=== PATIENT | male | born 1955 | race African-American/Black ===

== ENCOUNTER 2016-09-03 09:02 | Emergency (ER) | payer MEDICAID ==
[~2016-09-03] VITALS: Ht 177.8 cm; Wt 64.0 kg
[2016-09-03] MEDS ORDERED: KETOROLAC 60MG/2ML VIAL IM ONE (10:00)
[2016-09-03] MEDS ORDERED: LIDOCAINE HCL 1% 20ML VIAL (Pyxis) INJ MC ONE (10:00)
[2016-09-03] MEDS ORDERED: BACITRACIN ZINC OINT UDPKT TOP ONE (10:00)
[2016-09-03 10:10] VITALS: BP 178/94
== END 2016-09-03 11:25 | disposition home or self-care (01) ==
LOC: ER 10:04
DX: L02.212 Cutaneous abscess of back [any part, except buttock and flank] (principal); I10 Essential (primary) hypertension; F17.210 Nicotine dependence, cigarettes, uncomplicated
CPT/HCPCS: 10060; 96372; 99283; J1885; J3490; X7700; Z7610

== ENCOUNTER 2017-10-26 04:22 | Emergency (ER) | payer MEDICAID ==
[~2017-10-26] VITALS: Ht 172.7 cm; Wt 62.0 kg
[2017-10-26 08:23] LABS: BASOPHILS % 0.9 % (0.0-2.0); EOSINOPHILS % 4.3 % (0.0-5.0); HEMATOCRIT. 25.6 % (42.0-52.0); HEMOGLOBIN. 8.7 g/dL (14.0-18.0); MEAN CORPUSCULAR HEMOGLOBIN 32.3 pg (28.0-32.0); MEAN CORPUSCULAR VOLUME 95.2 fL (80.0-94.0); MEAN PLATELET VOLUME 7.8 fl (7.4-10.4); MONOCYTES % 8.6 % (2.0-8.0); NEUTROPHILS % 63.2 % (40.0-76.0); PLATELET 117 x1000/uL (130-400); RED BLOOD CELL COUNT 2.69 mill/uL (4.7-6.1); RED CELL DISTRIBUTION WIDTH 13.6 % (11.6-14.6)
[2017-10-26 08:24] LABS: CHLORIDE 102 mEq/L (98-107)
[2017-10-26 08:28] LABS: ETHANOL BLOOD < 10 mg/dL
[2017-10-26 14:25] VITALS: BP 162/69
== END 2017-10-26 14:29 | disposition home or self-care (01) ==
LOC: ER 04:22
DX: S40.862A Insect bite (nonvenomous) of left upper arm, initial encounter (principal); S40.861A Insect bite (nonvenomous) of right upper arm, initial encounter; S27.898A Other injury of other specified intrathoracic organs, initial encounter; S22.42XA Multiple fractures of ribs, left side, initial encounter for closed fracture; I10 Essential (primary) hypertension; D64.9 Anemia, unspecified; F17.200 Nicotine dependence, unspecified, uncomplicated; W57.XXXA Bitten or stung by nonvenomous insect and other nonvenomous arthropods, initial encounter; V89.2XXA Person injured in unspecified motor-vehicle accident, traffic, initial encounter; Y93.9 Activity, unspecified; Y92.9 Unspecified place or not applicable
CPT/HCPCS: 36415; 71101; 80053; 85025; 93005; 99285; G0482; Z7610

== ENCOUNTER 2020-02-26 20:20 | Inpatient (IN) | payer MEDICAID, OTHER ==
[~2020-02-26] VITALS: Ht 172.7 cm; Wt 54.4 kg
[2020-02-26] MEDS ORDERED: AZITHROMYCIN 500 MG in DEXT 5% WATER 250 ML IV ONE (21:00)
[2020-02-26] MEDS ORDERED: SODIUM CHLORIDE 0.9% 1000ML BAG (SEPSIS BOLUS) IV ONE (21:00)
[2020-02-26] MEDS ORDERED: PIPERACILLIN/TAZ 3.375G PREMIX 50 ML IV ONE (21:00)
[2020-02-26 21:12] LABS: BASOPHILS % 0.8 % (0.0-2.0); EOSINOPHILS % 1.2 % (0.0-5.0); LYMPHOCYTES % 9.2 % (20.0-50.0); MEAN CORPUSCULAR HEMOGLOBIN 26.2 pg (28.0-32.0); MEAN CORPUSCULAR VOLUME 84.9 fL (80.0-94.0); MEAN PLATELET VOLUME 7.5 fl (7.4-10.4); MONOCYTES % 4.3 % (2.0-8.0); NEUTROPHILS % 84.5 % (40.0-76.0); PLATELET 534 x1000/uL (130-400); RED BLOOD CELL COUNT 2.66 mill/uL (4.7-6.1); RED CELL DISTRIBUTION WIDTH 15.5 % (11.6-14.6)
[2020-02-26 21:18] LABS: CHLORIDE 105 mEq/L (98-107)
[2020-02-26 21:20] LABS: INR 1.2; PROTHROMBIN TIME 12.7 sec (9.6-11.0)
[2020-02-26 21:30] LABS: HEMATOCRIT. 22.6 % (42.0-52.0)
[2020-02-26 21:58] LABS: CLARITY URINE CLEAR (CLEAR); COLOR URINE DARK YELLOW (YELLOW); KETONES URINE NEGATIVE (NEGATIVE); LEUKOCYTE ESTERASE URINE TRACE (NEGATIVE); NITRITE URINE POSITIVE (NEGATIVE); OCCULT BLOOD URINE TRACE (NEGATIVE); PROTEIN URINE 1+ (NEGATIVE); SPECIFIC GRAVITY URINE 1.028 (1.005-1.030)
[2020-02-27 03:35] VITALS: BP 137/75
[2020-02-27 04:30] VITALS: BP 137/75
[2020-02-27] MEDS ORDERED: ACET650S27 RC (05:27)
[2020-02-27] MEDS ORDERED: HYOS0.124 SL (05:27)
[2020-02-27] MEDS ORDERED: KEPPSOL MT (05:27)
[2020-02-27] MEDS ORDERED: TOPUD MT (05:27)
[2020-02-27] MEDS ORDERED: BISA10SU62 RC (05:27)
[2020-02-27] MEDS ORDERED: HYDR-4133 MT (05:27)
[2020-02-27] MEDS ORDERED: ONDA4TAB11 PO (05:27)
[2020-02-27] MEDS ORDERED: MORP10DI10 SL (05:27)
[2020-02-27] MEDS ORDERED: AMLO10TA80 MT (05:27)
[2020-02-27 08:00] VITALS: BP 137/73
[2020-02-27] MEDS ORDERED: PIPERACILLIN/TAZ 3.375G PREMIX 50 ML IV SCH (08:00)
[2020-02-27] MEDS ORDERED: IPRATROPIUM/ALBUTEROL 0.5-3(2.5)MG/3ML NEB HHN PRN (08:00)
[2020-02-27] MEDS ORDERED: ONDANSETRON HCL 4MG/2ML INJ IV PRN (08:00)
[2020-02-27] MEDS ORDERED: DIPHENHYDRAMINE 50MG/ML VIAL IV PRN (08:00)
[2020-02-27] MEDS ORDERED: CLONIDINE 0.1MG TABLET PO PRN (08:00)
[2020-02-27] MEDS ORDERED: ACETAMINOPHEN 325MG TABLET PO PRN (08:00)
[2020-02-27] MEDS: PIPERACILLIN/TAZOBACTAM 3.375 G in DEXT 5% WATER 100 ML IV SCH ×3 (09:59→21:07)
[2020-02-27 12:00] VITALS: BP 123/74
[2020-02-27 16:00] VITALS: BP 116/70
[2020-02-27 16:40] LABS: BASOPHILS % 0.2 % (0.0-2.0); EOSINOPHILS % 0.7 % (0.0-5.0); HEMATOCRIT. 24.3 % (42.0-52.0); HEMOGLOBIN. 7.9 g/dL (14.0-18.0); LYMPHOCYTES % 7.8 % (20.0-50.0); MEAN CORPUSCULAR HEMOGLOBIN 27.2 pg (28.0-32.0); MEAN CORPUSCULAR VOLUME 84.2 fL (80.0-94.0); MEAN PLATELET VOLUME 7.1 fl (7.4-10.4); MONOCYTES % 4.4 % (2.0-8.0); NEUTROPHILS % 86.9 % (40.0-76.0); PLATELET 490 x1000/uL (130-400); RED BLOOD CELL COUNT 2.88 mill/uL (4.7-6.1); RED CELL DISTRIBUTION WIDTH 15.5 % (11.6-14.6)
[2020-02-27 16:56] LABS: TOTAL IRON BINDING CAPACITY 167 ug/dL (250-450)
[2020-02-27 17:18] LABS: FOLIC ACID (FOLATE) SERUM 14.9 ng/mL (>5.38)
[2020-02-27] MEDS: SODIUM HYPOCHLORITE 0.125% 473ML SOLUTION TOP SCH (18:00)
[2020-02-27 20:38] VITALS: BP 115/64
[2020-02-27] MEDS: INSULIN LISPRO 100 UNITS/ML SUBCUT SCH (21:00)
[2020-02-27] MEDS: BLOOD SUGAR DIAGNOSTIC STRIP TEST SCH (21:07)
[2020-02-28] VITALS: BP 123/66
[2020-02-28 04:00] VITALS: BP 121/68
[2020-02-28] MEDS: PIPERACILLIN/TAZOBACTAM 3.375 G in DEXT 5% WATER 100 ML IV SCH (05:58)
[2020-02-28] MEDS: DEXTROSE 50% WATER 50ML SYRINGE IV PRN (06:07)
[2020-02-28] MEDS: BLOOD SUGAR DIAGNOSTIC STRIP TEST SCH ×4 (06:20→21:15)
[2020-02-28 06:45] LABS: BASOPHILS % 0.6 % (0.0-2.0); EOSINOPHILS % 0.3 % (0.0-5.0); HEMATOCRIT. 25.6 % (42.0-52.0); HEMOGLOBIN. 8.4 g/dL (14.0-18.0); LYMPHOCYTES % 8.6 % (20.0-50.0); MEAN CORPUSCULAR HEMOGLOBIN 27.5 pg (28.0-32.0); MEAN CORPUSCULAR VOLUME 83.9 fL (80.0-94.0); MONOCYTES % 4.2 % (2.0-8.0); NEUTROPHILS % 86.3 % (40.0-76.0); PLATELET 539 x1000/uL (130-400); RED BLOOD CELL COUNT 3.05 mill/uL (4.7-6.1); RED CELL DISTRIBUTION WIDTH 15.4 % (11.6-14.6)
[2020-02-28 06:55] LABS: CHLORIDE 105 mEq/L (98-107)
[2020-02-28 07:03] LABS: LDL CHOLESTEROL 31 mg/dL (5-100)
[2020-02-28 07:05] LABS: HDL CHOLESTEROL 28 mg/dL (40-59)
[2020-02-28] MEDS: SODIUM HYPOCHLORITE 0.125% 473ML SOLUTION TOP SCH (07:29)
[2020-02-28] MEDS: INSULIN LISPRO 100 UNITS/ML SUBCUT SCH ×4 (07:29→21:00)
[2020-02-28 08:00] VITALS: BP 99/56
[2020-02-28 12:00] VITALS: BP 104/64
[2020-02-28] MEDS: FERROUS SULFATE 325MG TABLET PO SCH ×2 (14:13→19:34)
[2020-02-28] MEDS: CEFTRIAXONE 1,000 MG in DEXTROSE 5% WATER 50 ML IV SCH (14:13)
[2020-02-28 16:00] VITALS: BP 105/72
[2020-02-28] MEDS ORDERED: POTASSIUM CHLORIDE 20MEQ TABLET SR PO SCH (19:50)
[2020-02-28 20:00] VITALS: BP 116/71
[2020-02-29] MEDS ORDERED: POTASSIUM CHLORIDE 20MEQ TABLET SR PO SCH
[2020-02-29 00:41] VITALS: BP 121/73
[2020-02-29 04:00] VITALS: BP 125/80
[2020-02-29 07:16] LABS: CHLORIDE 104 mEq/L (98-107)
[2020-02-29 07:18] LABS: BASOPHILS % 0.3 % (0.0-2.0); EOSINOPHILS % 1.2 % (0.0-5.0); HEMATOCRIT. 24.7 % (42.0-52.0); HEMOGLOBIN. 7.8 g/dL (14.0-18.0); LYMPHOCYTES % 11.9 % (20.0-50.0); MEAN CORPUSCULAR HEMOGLOBIN 26.7 pg (28.0-32.0); MEAN CORPUSCULAR VOLUME 84.3 fL (80.0-94.0); MEAN PLATELET VOLUME 7.2 fl (7.4-10.4); MONOCYTES % 4.3 % (2.0-8.0); NEUTROPHILS % 82.3 % (40.0-76.0); PLATELET 565 x1000/uL (130-400); RED BLOOD CELL COUNT 2.92 mill/uL (4.7-6.1); RED CELL DISTRIBUTION WIDTH 15.4 % (11.6-14.6)
[2020-02-29] MEDS: INSULIN LISPRO 100 UNITS/ML SUBCUT SCH ×4 (07:28→21:00)
[2020-02-29] MEDS: BLOOD SUGAR DIAGNOSTIC STRIP TEST SCH ×4 (07:28→21:32)
[2020-02-29] MEDS: CEFTRIAXONE 1,000 MG in DEXTROSE 5% WATER 50 ML IV SCH (08:25)
[2020-02-29] MEDS: FERROUS SULFATE 325MG TABLET PO SCH ×3 (08:25→18:11)
[2020-02-29 08:26] VITALS: BP 107/67
[2020-02-29] MEDS: SODIUM HYPOCHLORITE 0.125% 473ML SOLUTION TOP SCH (08:26)
[2020-02-29 11:47] VITALS: BP 119/79
[2020-02-29] MEDS: DEXTROSE 50% WATER 50ML SYRINGE IV PRN (12:50)
[2020-02-29] MEDS ORDERED: POTASSIUM CHLORIDE 20MEQ/PACKET PO NR (15:00)
[2020-02-29 15:52] VITALS: BP 105/69
[2020-02-29] MEDS ORDERED: LIDOCAINE HCL/EPINEPHRINE 1%-EPI 1:100,000 20 ML VIAL INFIL NR (18:30)
[2020-02-29] MEDS ORDERED: SILVER NITRATE APPLICATOR STICK TOP NR (18:30)
[2020-02-29 20:49] VITALS: BP 128/77
[2020-02-29] MEDS ORDERED: VANCOMYCIN 1250MG in DEXTROSE 5% WATER 250ML IV NR (23:00)
[2020-03-01 00:26] VITALS: BP 142/88
[2020-03-01 04:00] VITALS: BP 135/89
[2020-03-01 06:25] LABS: BASOPHILS % 0.8 % (0.0-2.0); EOSINOPHILS % 1.4 % (0.0-5.0); HEMATOCRIT. 25.1 % (42.0-52.0); HEMOGLOBIN. 8.2 g/dL (14.0-18.0); LYMPHOCYTES % 11.8 % (20.0-50.0); MEAN CORPUSCULAR HEMOGLOBIN 27.5 pg (28.0-32.0); MEAN CORPUSCULAR VOLUME 84.6 fL (80.0-94.0); MONOCYTES % 3.8 % (2.0-8.0); NEUTROPHILS % 82.2 % (40.0-76.0); PLATELET 607 x1000/uL (130-400); RED BLOOD CELL COUNT 2.96 mill/uL (4.7-6.1); RED CELL DISTRIBUTION WIDTH 15.5 % (11.6-14.6)
[2020-03-01 07:03] LABS: CHLORIDE 103 mEq/L (98-107)
[2020-03-01] MEDS: BLOOD SUGAR DIAGNOSTIC STRIP TEST SCH ×4 (07:20→20:46)
[2020-03-01] MEDS: INSULIN LISPRO 100 UNITS/ML SUBCUT SCH ×4 (07:50→20:46)
[2020-03-01 07:52] VITALS: BP 121/74
[2020-03-01] MEDS ORDERED: VANCOMYCIN 1 G PREMIX 200 ML IV SCH (09:00)
[2020-03-01] MEDS: SODIUM HYPOCHLORITE 0.125% 473ML SOLUTION TOP SCH (09:00)
[2020-03-01] MEDS: FERROUS SULFATE 325MG TABLET PO SCH ×3 (09:51→18:48)
[2020-03-01] MEDS: CEFTRIAXONE 1,000 MG in DEXTROSE 5% WATER 50 ML IV SCH (09:51)
[2020-03-01 11:49] VITALS: BP 123/71
[2020-03-01 16:12] VITALS: BP 111/65
[2020-03-01 20:40] VITALS: BP 125/75
[2020-03-01] MEDS: HYDROCODONE/ACETAMINOPHEN 5/325MG TABLET PO PRN (23:07)
[2020-03-02 00:25] VITALS: BP 128/78
[2020-03-02 04:00] VITALS: BP 115/72
[2020-03-02] MEDS: BLOOD SUGAR DIAGNOSTIC STRIP TEST SCH ×4 (06:35→20:49)
[2020-03-02] MEDS: INSULIN LISPRO 100 UNITS/ML SUBCUT SCH ×4 (07:50→20:49)
[2020-03-02 08:00] VITALS: BP 128/82
[2020-03-02] MEDS: FERROUS SULFATE 325MG TABLET PO SCH ×3 (08:56→16:58)
[2020-03-02] MEDS: SODIUM HYPOCHLORITE 0.125% 473ML SOLUTION TOP SCH (08:58)
[2020-03-02] MEDS: CEFTRIAXONE 1,000 MG in DEXTROSE 5% WATER 50 ML IV SCH (11:45)
[2020-03-02 12:00] VITALS: BP 116/76
[2020-03-02 13:15] LABS: INR 1.1
[2020-03-02 16:00] VITALS: BP 126/86
[2020-03-02 20:29] VITALS: BP 124/81
[2020-03-03 04:00] VITALS: BP 142/95
[2020-03-03 06:24] LABS: BASOPHILS % 0.4 % (0.0-2.0); EOSINOPHILS % 1.4 % (0.0-5.0); HEMATOCRIT. 27.8 % (42.0-52.0); LYMPHOCYTES % 15.6 % (20.0-50.0); MEAN CORPUSCULAR HEMOGLOBIN 27.7 pg (28.0-32.0); MEAN CORPUSCULAR VOLUME 85.2 fL (80.0-94.0); MEAN PLATELET VOLUME 7.7 fl (7.4-10.4); MONOCYTES % 4.6 % (2.0-8.0); PLATELET 672 x1000/uL (130-400); RED BLOOD CELL COUNT 3.26 mill/uL (4.7-6.1); RED CELL DISTRIBUTION WIDTH 15.7 % (11.6-14.6)
[2020-03-03 06:25] LABS: CHLORIDE 101 mEq/L (98-107)
[2020-03-03] MEDS: BLOOD SUGAR DIAGNOSTIC STRIP TEST SCH ×4 (06:26→21:20)
[2020-03-03] MEDS: INSULIN LISPRO 100 UNITS/ML SUBCUT SCH ×4 (07:50→21:00)
[2020-03-03 08:00] VITALS: BP 132/91
[2020-03-03] MEDS: SODIUM HYPOCHLORITE 0.125% 473ML SOLUTION TOP SCH (08:14)
[2020-03-03] MEDS: FERROUS SULFATE 325MG TABLET PO SCH ×3 (08:14→17:06)
[2020-03-03] MEDS ORDERED: LIDOCAINE HCL/EPINEPHRINE 1%-EPI 1:100,000 20 ML VIAL INFIL NR (11:15)
[2020-03-03] MEDS ORDERED: SILVER NITRATE APPLICATOR STICK TOP NR (11:15)
[2020-03-03 12:00] VITALS: BP 133/81
[2020-03-03] MEDS: ZINC SULFATE 220 MG ( 50 ) CAPSULE PO SCH (12:43)
[2020-03-03] MEDS: ASCORBIC ACID 500 MG TABLET PO SCH (12:43)
[2020-03-03 16:00] VITALS: BP 110/76
[2020-03-03 20:11] VITALS: BP 132/82
[2020-03-04] VITALS (7 sets, daily range): BP systolic 111–147; BP diastolic 69–92
[2020-03-04] MEDS: BLOOD SUGAR DIAGNOSTIC STRIP TEST SCH ×4 (06:56→21:00)
[2020-03-04] MEDS: DEXTROSE 50% WATER 50ML SYRINGE IV PRN (06:57)
[2020-03-04 07:39] LABS: BASOPHILS % 0.2 % (0.0-2.0); EOSINOPHILS % 1.5 % (0.0-5.0); HEMATOCRIT. 26.4 % (42.0-52.0); HEMOGLOBIN. 8.4 g/dL (14.0-18.0); MEAN CORPUSCULAR HEMOGLOBIN 27.1 pg (28.0-32.0); MEAN CORPUSCULAR VOLUME 84.5 fL (80.0-94.0); MEAN PLATELET VOLUME 6.6 fl (7.4-10.4); MONOCYTES % 5.9 % (2.0-8.0); NEUTROPHILS % 66.4 % (40.0-76.0); PLATELET 761 x1000/uL (130-400); RED BLOOD CELL COUNT 3.12 mill/uL (4.7-6.1); RED CELL DISTRIBUTION WIDTH 15.7 % (11.6-14.6)
[2020-03-04 07:40] LABS: CHLORIDE 101 mEq/L (98-107)
[2020-03-04] MEDS: INSULIN LISPRO 100 UNITS/ML SUBCUT SCH ×4 (07:50→21:00)
[2020-03-04] MEDS: ASCORBIC ACID 500 MG TABLET PO SCH (08:22)
[2020-03-04] MEDS: ZINC SULFATE 220 MG ( 50 ) CAPSULE PO SCH (08:22)
[2020-03-04] MEDS: FERROUS SULFATE 325MG TABLET PO SCH ×3 (08:22→17:50)
[2020-03-04] MEDS: SODIUM HYPOCHLORITE 0.125% 473ML SOLUTION TOP SCH (08:23)
[2020-03-04] MEDS: DEXT 5%/0.9% NACL 1,000 ML IV SCH (11:20)
[2020-03-04] MEDS ORDERED: BUPIVACAINE/EPINEPH/PF 0.25%/0.0005 10ML ONE (14:37)
[2020-03-04] MEDS ORDERED: VANCOMYCIN HCL 1 GM/VIAL ONE (14:38)
[2020-03-04] MEDS ORDERED: BACITRACIN 50,000 UNITS/VIAL ONE ×2 (14:38→17:50)
[2020-03-04] MEDS ORDERED: MIDAZOLAM HCL 2 MG/2 ML VIAL ONE (17:29)
[2020-03-04] MEDS ORDERED: FENTANYL CITRATE/PF 50MCG/ML 2ML VIAL ONE (17:29)
[2020-03-04] MEDS ORDERED: PROPOFOL 200MG/20ML VIAL IV ONE (17:29)
[2020-03-04] MEDS ORDERED: DEXAMETHASONE 4MG/ML 1ML VIAL ONE (17:31)
[2020-03-04] MEDS ORDERED: ONDANSETRON HCL 4MG/2ML INJ ONE (17:31)
[2020-03-04] MEDS ORDERED: ROCURONIUM BROMIDE 10MG/ML VIAL 5ML IV ONE (17:58)
[2020-03-04] MEDS ORDERED: BUPIVACAINE HCL/PF 0.25% (2.5MG/ML) 10ML ONE (18:18)
[2020-03-04] MEDS ORDERED: HYDROMORPHONE HCL/PF 2MG/ML CPJ IV PRN (18:45)
[2020-03-04] MEDS ORDERED: ONDANSETRON HCL 4MG/2ML INJ IV PRN (18:45)
[2020-03-04] MEDS ORDERED: MEPERIDINE HCL/PF 25MG/ML CPJ IV PRN (18:45)
[2020-03-04] MEDS ORDERED: LABETALOL 5MG/ML SYR 20 MG/4 ML SYRINGE IV PRN (18:45)
[2020-03-04] MEDS ORDERED: GLYCOPYRROLATE 0.2 MG/ML 2ML VIAL ONE (18:58)
[2020-03-04] MEDS ORDERED: NEOSTIGMINE METHYLSULFATE 1MG/ML 10 ML VIAL ONE (18:58)
[2020-03-05] VITALS: BP 124/84
[2020-03-05 00:31] LABS: HEMOGLOBIN 10.7 g/dL (14.0-18.0)
[2020-03-05 04:00] VITALS: BP 123/78
[2020-03-05 06:59] LABS: BASOPHILS % 0.3 % (0.0-2.0); HEMATOCRIT. 30.9 % (42.0-52.0); HEMOGLOBIN. 10.3 g/dL (14.0-18.0); MEAN CORPUSCULAR HEMOGLOBIN 28.2 pg (28.0-32.0); MEAN CORPUSCULAR VOLUME 84.6 fL (80.0-94.0); MEAN PLATELET VOLUME 7.9 fl (7.4-10.4); MONOCYTES % 3.5 % (2.0-8.0); NEUTROPHILS % 86.2 % (40.0-76.0); PLATELET 511 x1000/uL (130-400); RED BLOOD CELL COUNT 3.65 mill/uL (4.7-6.1)
[2020-03-05 07:21] LABS: CHLORIDE 105 mEq/L (98-107)
[2020-03-05] MEDS: INSULIN LISPRO 100 UNITS/ML SUBCUT SCH ×4 (07:37→21:00)
[2020-03-05] MEDS: BLOOD SUGAR DIAGNOSTIC STRIP TEST SCH ×4 (07:37→21:13)
[2020-03-05] MEDS: FERROUS SULFATE 325MG TABLET PO SCH ×3 (08:05→17:09)
[2020-03-05] MEDS: HYDROCODONE/ACETAMINOPHEN 5/325MG TABLET PO PRN (08:06)
[2020-03-05] MEDS: ASCORBIC ACID 500 MG TABLET PO SCH (08:06)
[2020-03-05] MEDS: ZINC SULFATE 220 MG ( 50 ) CAPSULE PO SCH (08:06)
[2020-03-05] MEDS: SODIUM HYPOCHLORITE 0.125% 473ML SOLUTION TOP SCH (08:06)
[2020-03-05 08:41] VITALS: BP 122/71
[2020-03-05] MEDS: DEXT 5%/0.9% NACL 1,000 ML IV SCH (11:02)
[2020-03-05 12:06] VITALS: BP 118/73
[2020-03-05 16:00] VITALS: BP 124/73
[2020-03-05 20:00] VITALS: BP 117/74
[2020-03-06] VITALS: BP 130/86
[2020-03-06 04:00] VITALS: BP 136/88
[2020-03-06 06:46] LABS: BASOPHILS % 0.4 % (0.0-2.0); HEMATOCRIT. 33.2 % (42.0-52.0); HEMOGLOBIN. 10.7 g/dL (14.0-18.0); LYMPHOCYTES % 21.8 % (20.0-50.0); MEAN CORPUSCULAR HEMOGLOBIN 27.8 pg (28.0-32.0); MEAN PLATELET VOLUME 7.3 fl (7.4-10.4); MONOCYTES % 7.5 % (2.0-8.0); NEUTROPHILS % 69.3 % (40.0-76.0); PLATELET 568 x1000/uL (130-400); RED BLOOD CELL COUNT 3.86 mill/uL (4.7-6.1); RED CELL DISTRIBUTION WIDTH 15.5 % (11.6-14.6)
[2020-03-06 06:50] LABS: CHLORIDE 108 mEq/L (98-107)
[2020-03-06 06:56] LABS: PHOSPHORUS 2.1 mg/dL (2.5-4.9)
[2020-03-06] MEDS: INSULIN LISPRO 100 UNITS/ML SUBCUT SCH ×2 (07:50→11:00)
[2020-03-06] MEDS: BLOOD SUGAR DIAGNOSTIC STRIP TEST SCH ×2 (07:59→11:00)
[2020-03-06 08:02] VITALS: BP 123/67
[2020-03-06] MEDS: ZINC SULFATE 220 MG ( 50 ) CAPSULE PO SCH (08:45)
[2020-03-06] MEDS: FERROUS SULFATE 325MG TABLET PO SCH ×2 (08:45→11:53)
[2020-03-06] MEDS: ASCORBIC ACID 500 MG TABLET PO SCH (08:45)
[2020-03-06] MEDS: SODIUM HYPOCHLORITE 0.125% 473ML SOLUTION TOP SCH (09:00)
[2020-03-06] MEDS: DEXT 5%/0.9% NACL 1,000 ML IV SCH (10:53)
[2020-03-06 12:09] VITALS: BP 133/77
[2020-03-06 14:06] VITALS: BP 133/77
[2020-03-06 16:24] VITALS: BP 129/79
== END 2020-03-06 17:45 | DRG 710 ==
LOC: ER 20:20 → 6WST 02-27 02:11 → EDBEDREQTM 02-27 02:13 → EDBEDREQDT 02-27 02:13 → EDBEDREQ 02-27 02:13 → EDBEDREQSVC 02-27 02:13 → ENRESERV 02-27 02:55
PROVIDERS: ADMIT Internal Medicine; ATTEND Internal Medicine
PROC: 30233N1 Transfusion of Nonautologous Red Blood Cells into Peripheral Vein, Percutaneous Approach (ICD-10-PCS; 2020-02-27)
PROC: 0KBN0ZZ Excision of Right Hip Muscle, Open Approach (ICD-10-PCS; principal; 2020-03-03)
PROC: 0Y6C0Z3 Detachment at Right Upper Leg, Low, Open Approach (ICD-10-PCS; 2020-03-04)
DX: A41.51 Sepsis due to Escherichia coli [E. coli] (principal); G20 Parkinson's disease; I11.0 Hypertensive heart disease with heart failure; I73.9 Peripheral vascular disease, unspecified; N39.0 Urinary tract infection, site not specified; F02.80 Dementia in other diseases classified elsewhere, unspecified severity, without behavioral disturbance, psychotic disturbance, mood disturbance, and anxiety; R64 Cachexia; E87.6 Hypokalemia; B96.20 Unspecified Escherichia coli [E. coli] as the cause of diseases classified elsewhere; I82.512 Chronic embolism and thrombosis of left femoral vein; L89.154 Pressure ulcer of sacral region, stage 4; L08.9 Local infection of the skin and subcutaneous tissue, unspecified; L89.896 Pressure-induced deep tissue damage of other site; D63.8 Anemia in other chronic diseases classified elsewhere; M24.551 Contracture, right hip; Z66 Do not resuscitate; Z51.5 Encounter for palliative care; Z20.828 Contact with and (suspected) exposure to other viral communicable diseases; M24.561 Contracture, right knee; L97.518 Non-pressure chronic ulcer of other part of right foot with other specified severity; L89.214 Pressure ulcer of right hip, stage 4; Z68.1 Body mass index [BMI] 19.9 or less, adult
CPT/HCPCS: 36415; 71045; 80048; 80053; 80061; 81003; 82270; 82607; 82728; 82746; 82962; 83036; 83540; 83550; 83605; 83735; 84100; 84145; 84443; 84484; 85014; 85018; 85025; 85384; 86850; 86900; 86920; 87077; 87186; 87426; 88307; 88311; 92610; 93005; 93923; 93970; 99291; C1893; J0171; J0456; J0696; J1100; J2250; J2405; J2543; J2704; J2710; J3010; J3370; J3490; J7030; J7040; J7042; J7060; P9016

== ENCOUNTER 2020-06-17 21:26 | Inpatient (IN) | payer MEDICAID ==
[~2020-06-17] VITALS: Ht 162.6 cm; Wt 46.3 kg
[~2020-06-17 21:26] MED LIST: ACET650S27 RC; BISA10SU62 RC; HYOS0.124 SL; KEPPSOL MT; MORP10DI10 SL; ONDA4TAB11 PO; TOPUD MT
[2020-06-17] MEDS ORDERED: VANCOMYCIN 1 G PREMIX 200 ML IV ONE (22:00)
[2020-06-17] MEDS ORDERED: SODIUM CHLORIDE 0.9% 1000ML BAG (SEPSIS BOLUS) IV ONE (22:00)
[2020-06-17] MEDS ORDERED: PIPERACILLIN/TAZ 3.375G PREMIX 50 ML IV ONE (22:00)
[2020-06-17 23:08] LABS: BASOPHILS % 0.3 % (0.0-2.0); EOSINOPHILS % 0.2 % (0.0-5.0); HEMATOCRIT. 28.7 % (42.0-52.0); LYMPHOCYTES % 7.4 % (20.0-50.0); MEAN CORPUSCULAR HEMOGLOBIN 27.8 pg (28.0-32.0); MEAN CORPUSCULAR VOLUME 88.3 fL (80.0-94.0); MEAN PLATELET VOLUME 7.7 fl (7.4-10.4); MONOCYTES % 4.3 % (2.0-8.0); NEUTROPHILS % 87.8 % (40.0-76.0); PLATELET 490 x1000/uL (130-400); RED BLOOD CELL COUNT 3.25 mill/uL (4.7-6.1); RED CELL DISTRIBUTION WIDTH 14.9 % (11.6-14.6)
[2020-06-17 23:16] LABS: INR 1.2; PROTHROMBIN TIME 12.3 sec (9.6-11.0)
[2020-06-18] VITALS (11 sets, daily range): BP systolic 101–123; BP diastolic 64–77
[2020-06-18] MEDS ORDERED: VANCOMYCIN 1 G PREMIX 200 ML IV NR (00:15)
[2020-06-18 00:21] LABS: CHLORIDE 117 mEq/L (98-107)
[2020-06-18] MEDS ORDERED: KCL 20MEQ/100ML PREMIX 100 ML IV ONE (01:15)
[2020-06-18] MEDS ORDERED: ACETAMINOPHEN 650MG SUPP PR PRN (06:45)
[2020-06-18] MEDS ORDERED: ONDANSETRON HCL 4MG/2ML INJ IV PRN (06:45)
[2020-06-18 07:27] LABS: CHLORIDE 119 mEq/L (98-107)
[2020-06-18 07:31] LABS: BASOPHILS % 0.2 % (0.0-2.0); EOSINOPHILS % 0.4 % (0.0-5.0); HEMOGLOBIN. 7.6 g/dL (14.0-18.0); LYMPHOCYTES % 7.4 % (20.0-50.0); MEAN CORPUSCULAR HEMOGLOBIN 27.7 pg (28.0-32.0); MEAN CORPUSCULAR VOLUME 86.9 fL (80.0-94.0); MEAN PLATELET VOLUME 6.9 fl (7.4-10.4); MONOCYTES % 3.4 % (2.0-8.0); NEUTROPHILS % 88.6 % (40.0-76.0); PLATELET 525 x1000/uL (130-400); RED BLOOD CELL COUNT 2.76 mill/uL (4.7-6.1); RED CELL DISTRIBUTION WIDTH 14.7 % (11.6-14.6)
[2020-06-18 07:48] LABS: LDL CHOLESTEROL 33 mg/dL (5-100)
[2020-06-18 07:49] LABS: HDL CHOLESTEROL 27 mg/dL (40-59)
[2020-06-18] MEDS ORDERED: DEXT 5%/0.45% NACL KCL 20MEQ/L 1,000 ML IV SCH (08:00)
[2020-06-18] MEDS: PIPERACILLIN/TAZOBACTAM 3.375 G in DEXT 5% WATER 100 ML IV SCH ×2 (09:21→16:48)
[2020-06-18 12:46] LABS: T4 FREE 2.12 ng/dL (0.76-1.46)
[2020-06-18] MEDS ORDERED: PIPERACILLIN/TAZOBACTAM 3.375 G/VIAL IV SCH (14:00)
[2020-06-18] MEDS ORDERED: POTASSIUM CHLORIDE 20MEQ TABLET SR PO NR (16:15)
[2020-06-18] MEDS: DEXTROSE 5% WATER 1,000 ML IV SCH (16:48)
[2020-06-18] MEDS: VANCOMYCIN 500 MG PREMIX 100 ML IV SCH (17:12)
[2020-06-18 18:30] LABS: CLARITY URINE TURBID (CLEAR); COLOR URINE YELLOW (YELLOW); KETONES URINE NEGATIVE (NEGATIVE); LEUKOCYTE ESTERASE URINE 3+ (NEGATIVE); NITRITE URINE NEGATIVE (NEGATIVE); OCCULT BLOOD URINE 3+ (NEGATIVE); PROTEIN URINE 2+ (NEGATIVE); SPECIFIC GRAVITY URINE 1.017 (1.005-1.030); UROBILINOGEN URINE 0.2 E.U./dL (0.2-1.0)
[2020-06-19] VITALS (10 sets, daily range): BP systolic 100–120; BP diastolic 50–81
[2020-06-19] MEDS: PIPERACILLIN/TAZOBACTAM 3.375 G in DEXT 5% WATER 100 ML IV SCH ×3 (00:05→16:32)
[2020-06-19] MEDS: VANCOMYCIN 500 MG PREMIX 100 ML IV SCH ×3 (00:40→17:37)
[2020-06-19 06:42] LABS: BASOPHILS % 0.1 % (0.0-2.0); HEMATOCRIT. 23.9 % (42.0-52.0); HEMOGLOBIN. 7.4 g/dL (14.0-18.0); LYMPHOCYTES % 9.4 % (20.0-50.0); MEAN CORPUSCULAR HEMOGLOBIN 27.2 pg (28.0-32.0); MEAN CORPUSCULAR VOLUME 88.3 fL (80.0-94.0); MONOCYTES % 5.3 % (2.0-8.0); NEUTROPHILS % 83.2 % (40.0-76.0); PLATELET 465 x1000/uL (130-400); RED BLOOD CELL COUNT 2.71 mill/uL (4.7-6.1)
[2020-06-19 07:21] LABS: CHLORIDE 116 mEq/L (98-107)
[2020-06-19 10:07] LABS: HIV SCREEN 4G Non Reactive (Non Reactive)
[2020-06-19] MEDS: DEXTROSE 5% WATER 1,000 ML IV SCH ×2 (16:37→17:38)
[2020-06-19] MEDS ORDERED: POTASSIUM CHLORIDE 20MEQ TABLET SR PO NR (17:00)
[2020-06-19] MEDS ORDERED: POTASSIUM CHLORIDE 20MEQ/PACKET PO NR (18:45)
[2020-06-20] VITALS (10 sets, daily range): BP systolic 109–127; BP diastolic 55–91
[2020-06-20 08:30] LABS: BASOPHILS % 0.2 % (0.0-2.0); EOSINOPHILS % 2.3 % (0.0-5.0); HEMATOCRIT. 21.1 % (42.0-52.0); LYMPHOCYTES % 12.4 % (20.0-50.0); MEAN CORPUSCULAR HEMOGLOBIN 27.3 pg (28.0-32.0); MEAN CORPUSCULAR VOLUME 87.9 fL (80.0-94.0); MEAN PLATELET VOLUME 7.3 fl (7.4-10.4); MONOCYTES % 5.5 % (2.0-8.0); NEUTROPHILS % 79.6 % (40.0-76.0); PLATELET 422 x1000/uL (130-400); RED CELL DISTRIBUTION WIDTH 14.8 % (11.6-14.6)
[2020-06-20] MEDS: DEXTROSE 5% WATER 1,000 ML IV SCH ×2 (08:30→21:48)
[2020-06-20] MEDS: PIPERACILLIN/TAZOBACTAM 3.375 G in DEXT 5% WATER 100 ML IV SCH ×3 (08:36→18:58)
[2020-06-20 08:57] LABS: HEMOGLOBIN. 6.6 g/dL (14.0-18.0)
[2020-06-20 09:15] LABS: CHLORIDE 106 mEq/L (98-107)
[2020-06-20] MEDS: VANCOMYCIN 750 MG PREMIX 150 ML IV SCH ×3 (09:24→18:58)
[2020-06-20] MEDS: PANTOPRAZOLE SODIUM 40 MG/VIAL IV SCH (17:38)
[2020-06-20] MEDS ORDERED: CEFTRIAXONE 2 G PREMIX 50 ML IV SCH (18:00)
[2020-06-21] MEDS: VANCOMYCIN 750 MG PREMIX 150 ML IV SCH ×2 (00:57→08:01)
[2020-06-21 04:00] VITALS: BP 133/74
[2020-06-21 05:34] LABS: CHLORIDE 104 mEq/L (98-107)
[2020-06-21 05:42] LABS: TOTAL IRON BINDING CAPACITY 167 ug/dL (250-450)
[2020-06-21 06:03] LABS: FOLIC ACID (FOLATE) SERUM 7.4 ng/mL (>5.38)
[2020-06-21 06:25] LABS: BASOPHILS % 0.3 % (0.0-2.0); EOSINOPHILS % 1.9 % (0.0-5.0); HEMATOCRIT. 29.4 % (42.0-52.0); HEMOGLOBIN. 9.3 g/dL (14.0-18.0); LYMPHOCYTES % 13.7 % (20.0-50.0); MEAN CORPUSCULAR HEMOGLOBIN 26.8 pg (28.0-32.0); MEAN CORPUSCULAR VOLUME 85.2 fL (80.0-94.0); MEAN PLATELET VOLUME 7.2 fl (7.4-10.4); MONOCYTES % 5.7 % (2.0-8.0); NEUTROPHILS % 78.4 % (40.0-76.0); PLATELET 409 x1000/uL (130-400); RED BLOOD CELL COUNT 3.45 mill/uL (4.7-6.1); RED CELL DISTRIBUTION WIDTH 15.7 % (11.6-14.6)
[2020-06-21] MEDS ORDERED: POTASSIUM CHLORIDE 20MEQ TABLET SR PO NR (07:30)
[2020-06-21 08:00] VITALS: BP 124/80
[2020-06-21] MEDS: PANTOPRAZOLE SODIUM 40 MG/VIAL IV SCH ×2 (08:01→17:07)
[2020-06-21 12:00] VITALS: BP 131/84
[2020-06-21] MEDS: DOCUSATE SODIUM 250MG CAPSULE PO SCH (12:08)
[2020-06-21] MEDS: POLYETHYLENE GLYCOL 3350 (17GM) 1 DOSE PACK PO SCH (12:08)
[2020-06-21] MEDS: DEXTROSE 5% WATER 1,000 ML IV SCH (12:08)
[2020-06-21 16:00] VITALS: BP 127/84
[2020-06-21] MEDS: VANCOMYCIN 500 MG PREMIX 100 ML IV SCH (17:07)
[2020-06-21] MEDS: CEFTRIAXONE 2 G in DEXTROSE 5% WATER 50 ML IV SCH (18:26)
[2020-06-21] MEDS: SENNOSIDES/DOCUSATE SOD 8.6/50MG TABLET PO SCH (21:26)
[2020-06-22] VITALS (8 sets, daily range): BP systolic 109–122; BP diastolic 56–73
[2020-06-22] MEDS: DEXTROSE 5% WATER 1,000 ML IV SCH ×2 (00:03→12:50)
[2020-06-22] MEDS: VANCOMYCIN 500 MG PREMIX 100 ML IV SCH ×3 (02:29→18:06)
[2020-06-22 06:32] LABS: BASOPHILS % 0.4 % (0.0-2.0); EOSINOPHILS % 2.1 % (0.0-5.0); HEMATOCRIT. 26.8 % (42.0-52.0); HEMOGLOBIN. 8.8 g/dL (14.0-18.0); LYMPHOCYTES % 13.1 % (20.0-50.0); MEAN CORPUSCULAR HEMOGLOBIN 27.8 pg (28.0-32.0); MEAN CORPUSCULAR VOLUME 84.6 fL (80.0-94.0); MONOCYTES % 6.3 % (2.0-8.0); NEUTROPHILS % 78.1 % (40.0-76.0); PLATELET 382 x1000/uL (130-400); RED BLOOD CELL COUNT 3.17 mill/uL (4.7-6.1); RED CELL DISTRIBUTION WIDTH 15.3 % (11.6-14.6)
[2020-06-22 06:46] LABS: CHLORIDE 104 mEq/L (98-107)
[2020-06-22] MEDS: PANTOPRAZOLE SODIUM 40 MG/VIAL IV SCH ×2 (09:04→18:06)
[2020-06-22] MEDS: FOLIC ACID 1MG TABLET PO SCH (09:04)
[2020-06-22] MEDS: ZINC SULFATE 220 MG ( 50 ) CAPSULE PO SCH (09:04)
[2020-06-22] MEDS: DOCUSATE SODIUM 250MG CAPSULE PO SCH (09:04)
[2020-06-22] MEDS: THIAMINE HCL 100MG TABLET PO SCH (09:05)
[2020-06-22] MEDS: POLYETHYLENE GLYCOL 3350 (17GM) 1 DOSE PACK PO SCH (09:05)
[2020-06-22] MEDS: ASCORBIC ACID 500 MG TABLET PO SCH (09:05)
[2020-06-22] MEDS ORDERED: POTASSIUM CHLORIDE 20MEQ TABLET SR PO NR (09:30)
[2020-06-22] MEDS ORDERED: LIDOCAINE HCL/EPINEPHRINE 1%-EPI 1:100,000 10 ML VIAL IJ NR (13:30)
[2020-06-22] MEDS: CEFTRIAXONE 2 G in DEXTROSE 5% WATER 50 ML IV SCH (20:02)
[2020-06-22] MEDS: SENNOSIDES/DOCUSATE SOD 8.6/50MG TABLET PO SCH (21:25)
[2020-06-23] VITALS: BP 117/62
[2020-06-23] MEDS: VANCOMYCIN 500 MG PREMIX 100 ML IV SCH ×2 (01:06→09:00)
[2020-06-23] MEDS: DEXTROSE 5% WATER 1,000 ML IV SCH ×2 (03:38→14:35)
[2020-06-23 04:00] VITALS: BP 113/68
[2020-06-23 08:00] VITALS: BP 143/84
[2020-06-23] MEDS: ASCORBIC ACID 500 MG TABLET PO SCH (08:43)
[2020-06-23] MEDS: PANTOPRAZOLE SODIUM 40 MG/VIAL IV SCH (08:43)
[2020-06-23] MEDS: FOLIC ACID 1MG TABLET PO SCH (08:43)
[2020-06-23] MEDS: POLYETHYLENE GLYCOL 3350 (17GM) 1 DOSE PACK PO SCH (08:44)
[2020-06-23] MEDS: DOCUSATE SODIUM 250MG CAPSULE PO SCH (08:44)
[2020-06-23] MEDS: THIAMINE HCL 100MG TABLET PO SCH (08:44)
[2020-06-23] MEDS: ZINC SULFATE 220 MG ( 50 ) CAPSULE PO SCH (09:00)
[2020-06-23 10:43] VITALS: BP 114/69
[2020-06-23 12:00] VITALS: BP 110/69
[2020-06-23] MEDS ORDERED: ACETAMINOPHEN 325MG TABLET PO PRN (13:00)
[2020-06-23] MEDS ORDERED: AMOX-424 MT ×2 (14:53→14:55)
[2020-06-23] MEDS ORDERED: VANCOMYCIN 750 MG PREMIX 150 ML IV SCH (22:00)
== END 2020-06-23 18:00 | DRG 720 ==
LOC: ER 21:26 → 5EST 06-18 01:13 → EDBEDREQDT 06-18 01:14 → EDBEDREQSVC 06-18 01:14 → EDBEDREQTM 06-18 01:14 → EDBEDREQ 06-18 01:14 → ENRESERV 06-18 01:27 → 5EST 06-20 12:30
PROVIDERS: ADMIT Internal Medicine; ATTEND Internal Medicine
PROC: 30233N1 Transfusion of Nonautologous Red Blood Cells into Peripheral Vein, Percutaneous Approach (ICD-10-PCS; principal; 2020-06-20)
DX: A41.9 Sepsis, unspecified organism (principal); E43 Unspecified severe protein-calorie malnutrition; G93.41 Metabolic encephalopathy; L89.154 Pressure ulcer of sacral region, stage 4; L89.894 Pressure ulcer of other site, stage 4; D64.9 Anemia, unspecified; E05.90 Thyrotoxicosis, unspecified without thyrotoxic crisis or storm; E87.0 Hyperosmolality and hypernatremia; E87.6 Hypokalemia; E87.8 Other disorders of electrolyte and fluid balance, not elsewhere classified; G40.909 Epilepsy, unspecified, not intractable, without status epilepticus; I11.0 Hypertensive heart disease with heart failure; N39.0 Urinary tract infection, site not specified; Z20.822 Contact with and (suspected) exposure to COVID-19; R64 Cachexia; R65.20 Severe sepsis without septic shock; G20 Parkinson's disease; F02.80 Dementia in other diseases classified elsewhere, unspecified severity, without behavioral disturbance, psychotic disturbance, mood disturbance, and anxiety; B96.4 Proteus (mirabilis) (morganii) as the cause of diseases classified elsewhere; Z86.73 Personal history of transient ischemic attack (TIA), and cerebral infarction without residual deficits; Z89.611 Acquired absence of right leg above knee; Z68.1 Body mass index [BMI] 19.9 or less, adult; Z79.899 Other long term (current) drug therapy
CPT/HCPCS: 36415; 71045; 80048; 80053; 80061; 80202; 81003; 82040; 82270; 82533; 82607; 82728; 82746; 83520; 83540; 83550; 83605; 84134; 84145; 84439; 84443; 84481; 84484; 85025; 85044; 86850; 86900; 86920; 87077; 87186; 87389; 87426; 92610; 93005; 93970; 99285; A6261; C9113; J0696; J2543; J3370; J3480; J3490; J7030; J7042; J7060; J7070; P9016; A4315

== ENCOUNTER 2022-05-28 19:19 | Inpatient (IN) | payer MEDICARE, MEDICAID ==
[~2022-05-28] VITALS: Ht 172.7 cm; Wt 62.6 kg
[~2022-05-28 19:19] MED LIST changes: -ACET650S27 RC; +AMLO10TA80 PO; +CRAN450T10 PO; +DOCU100T PO; +HYDR-4133 PO; -HYOS0.124 SL; +HYOS0.1285 PO; -KEPPSOL MT; +KEPPSOL PO; +LORA-249 PO; -MORP10DI10 SL; +MULT-230 PO; -ONDA4TAB11 PO; +ONDA4TAB5 PO; -TOPUD MT; +TOPUD PO
[2022-05-28 23:47] LABS: BASOPHILS % 0.6 % (0.0-2.0); HEMATOCRIT. 43.7 % (42.0-52.0); HEMOGLOBIN. 14.5 g/dL (14.0-18.0); LYMPHOCYTES % 34.5 % (20.0-50.0); MEAN CORPUSCULAR HEMOGLOBIN 27.9 pg (28.0-32.0); MEAN CORPUSCULAR VOLUME 84.2 fL (80.0-94.0); MEAN PLATELET VOLUME 7.3 fl (7.4-10.4); MONOCYTES % 7.7 % (2.0-8.0); NEUTROPHILS % 52.2 % (40.0-76.0); PLATELET 250 x1000/uL (130-400); RED BLOOD CELL COUNT 5.19 mill/uL (4.7-6.1); RED CELL DISTRIBUTION WIDTH 14.7 % (11.6-14.6)
[2022-05-29 00:13] LABS: CHLORIDE 108 mEq/L (98-107)
[2022-05-29 10:30] VITALS: BP 135/64
[2022-05-29 12:00] VITALS: BP 137/79
[2022-05-29] MEDS ORDERED: IPRATROPIUM/ALBUTEROL 0.5-3(2.5)MG/3ML NEB HHN PRN (14:15)
[2022-05-29] MEDS ORDERED: IPRATROPIUM BROMIDE (0.02%) 0.5MG/2.5ML NEB HHN PRN (14:15)
[2022-05-29] MEDS ORDERED: ONDANSETRON HCL 4MG/2ML INJ IV PRN (14:15)
[2022-05-29] MEDS ORDERED: HYDROCODONE/ACETAMINOPHEN 5/325MG TABLET PO PRN (14:15)
[2022-05-29] MEDS ORDERED: DOCUSATE SODIUM 100MG CAPSULE PO PRN (14:15)
[2022-05-29] MEDS ORDERED: BISACODYL 10MG SUPP RC PRN (14:15)
[2022-05-29] MEDS: FINASTERIDE 5MG TABLET PO SCH ×2 (14:15→16:30)
[2022-05-29] MEDS ORDERED: CLONIDINE 0.1MG TABLET PO PRN (14:15)
[2022-05-29] MEDS: TAMSULOSIN HCL 0.4MG SR CAPSULE PO SCH ×2 (14:15→16:30)
[2022-05-29] MEDS ORDERED: LORAZEPAM 0.5MG TABLET PO PRN (14:15)
[2022-05-29] MEDS ORDERED: ALBUTEROL (0.083%) 2.5MG/3ML NEB HHN PRN (14:15)
[2022-05-29] MEDS ORDERED: ACETAMINOPHEN 325MG TABLET PO PRN ×2 (14:15)
[2022-05-29] MEDS ORDERED: LIDOCAINE HCL 2% JELLY 5ML MM NR (15:00)
[2022-05-29] MEDS ORDERED: LIDOCAINE 2% 6ML GLYDO MM NR (15:00)
[2022-05-29] MEDS: SODIUM CHLORIDE 0.9% 1,000 ML IV SCH ×2 (16:45→19:29)
[2022-05-29 20:00] VITALS: BP 139/73
[2022-05-29] MEDS: LEVETIRACETAM 500MG/5ML CUP PO SCH (20:43)
[2022-05-30] VITALS: BP 141/83
[2022-05-30 04:00] VITALS: BP 134/66
[2022-05-30] MEDS: SODIUM CHLORIDE 0.9% 1,000 ML IV SCH ×2 (05:05→22:28)
[2022-05-30 08:00] VITALS: BP 126/62
[2022-05-30] MEDS: TAMSULOSIN HCL 0.4MG SR CAPSULE PO SCH (10:13)
[2022-05-30] MEDS: LEVETIRACETAM 500MG/5ML CUP PO SCH ×2 (10:14→22:28)
[2022-05-30] MEDS: AMLODIPINE 5MG TABLET PO SCH (10:14)
[2022-05-30] MEDS: MULTIVITAMINS,THER W-MINERALS TABLET PO SCH (10:14)
[2022-05-30] MEDS: FINASTERIDE 5MG TABLET PO SCH (10:14)
[2022-05-30 12:00] VITALS: BP 138/75
[2022-05-30 15:21] LABS: BASOPHILS % 0.5 % (0.0-2.0); EOSINOPHILS % 4.3 % (0.0-5.0); HEMATOCRIT. 39.1 % (42.0-52.0); HEMOGLOBIN. 12.7 g/dL (14.0-18.0); LYMPHOCYTES % 28.8 % (20.0-50.0); MEAN CORPUSCULAR HEMOGLOBIN 27.5 pg (28.0-32.0); MEAN CORPUSCULAR VOLUME 84.4 fL (80.0-94.0); MEAN PLATELET VOLUME 7.6 fl (7.4-10.4); MONOCYTES % 8.5 % (2.0-8.0); NEUTROPHILS % 57.9 % (40.0-76.0); PLATELET 255 x1000/uL (130-400); RED BLOOD CELL COUNT 4.63 mill/uL (4.7-6.1); RED CELL DISTRIBUTION WIDTH 14.4 % (11.6-14.6)
[2022-05-30 15:36] LABS: CHLORIDE 106 mEq/L (98-107)
[2022-05-30 16:00] VITALS: BP 122/63
[2022-05-30 20:00] VITALS: BP 143/83
[2022-05-31] VITALS: BP 144/81
[2022-05-31 04:00] VITALS: BP 144/72
[2022-05-31 08:00] VITALS: BP 148/80
[2022-05-31] MEDS: LEVETIRACETAM 500MG/5ML CUP PO SCH (11:31)
[2022-05-31] MEDS: TAMSULOSIN HCL 0.4MG SR CAPSULE PO SCH (11:31)
[2022-05-31] MEDS: MULTIVITAMINS,THER W-MINERALS TABLET PO SCH (11:32)
[2022-05-31] MEDS: AMLODIPINE 5MG TABLET PO SCH (11:32)
[2022-05-31] MEDS: FINASTERIDE 5MG TABLET PO SCH (11:32)
[2022-05-31 12:00] VITALS: BP 138/79
[2022-05-31 16:00] VITALS: BP 128/74
[2022-05-31 17:16] VITALS: BP 138/79
[2022-05-31 17:38] LABS: BASOPHILS % 0.4 % (0.0-2.0); EOSINOPHILS % 4.4 % (0.0-5.0); HEMATOCRIT. 41.7 % (42.0-52.0); HEMOGLOBIN. 13.4 g/dL (14.0-18.0); LYMPHOCYTES % 34.7 % (20.0-50.0); MEAN CORPUSCULAR VOLUME 83.9 fL (80.0-94.0); MONOCYTES % 9.1 % (2.0-8.0); NEUTROPHILS % 51.4 % (40.0-76.0); PLATELET 273 x1000/uL (130-400); RED BLOOD CELL COUNT 4.97 mill/uL (4.7-6.1)
[2022-05-31 17:55] LABS: CHLORIDE 108 mEq/L (98-107)
== END 2022-05-31 17:36 | DRG 700 ==
LOC: ER 19:19 → 6EST 05-29 01:27 → ENRESERV 05-29 09:14 → 6EST 05-29 10:54
PROVIDERS: ADMIT Internal Medicine; ATTEND Internal Medicine
DX: T83.028A Displacement of other urinary catheter, initial encounter (principal); F02.80 Dementia in other diseases classified elsewhere, unspecified severity, without behavioral disturbance, psychotic disturbance, mood disturbance, and anxiety; E05.90 Thyrotoxicosis, unspecified without thyrotoxic crisis or storm; G20 Parkinson's disease; I10 Essential (primary) hypertension; G40.909 Epilepsy, unspecified, not intractable, without status epilepticus; Z20.822 Contact with and (suspected) exposure to COVID-19; R33.9 Retention of urine, unspecified; F17.200 Nicotine dependence, unspecified, uncomplicated; Z86.73 Personal history of transient ischemic attack (TIA), and cerebral infarction without residual deficits; Z79.899 Other long term (current) drug therapy; Y84.9 Medical procedure, unspecified as the cause of abnormal reaction of the patient, or of later complication, without mention of misadventure at the time of the procedure; Y92.89 Other specified places as the place of occurrence of the external cause
CPT/HCPCS: 36415; 72192; 76857; 80048; 80053; 84153; 85025; 87426; 99285; C9803; J7030; A4315; G0103